=== PATIENT | male | born 1985 | race Two or more races ===

== ENCOUNTER 2025-01-19 20:32 | Emergency (ER) | payer OTHER ==
[~2025-01-19] VITALS: Ht 175.3 cm; Wt 83.9 kg
[2025-01-20 01:28] LABS: URINE APPEARANCE Clear; URINE BILIRRUBIN Negative (NEGATIVE); URINE COLOR Yellow; URINE GLUCOSE Negative (NEGATIVE); URINE KETONE Negative (NEGATIVE); URINE LEUKOCYTE Negative; URINE NITRATE Negative; URINE PROTEIN Negative (NEGATIVE); URINE UROBILINOGEN 0.2 E.U./dl
[2025-01-20 01:35] LABS: URINE RBC 2.9 uL (0.0-20.8)
[2025-01-20 01:54] LABS: BASO % 0.4 % (0.1-1.2); EOS # 0.39 (0.04-0.54); EOS % 3.5 % (0.7-7.0); LYMPH # 3.67 (1.18-3.74); LYMPH % 32.7 % (19.3-53.1); MEAN PLATELET VOLUME 9.30 fl (9.4-12.4); MONO # 0.83 (0.24-0.82); MONO % 7.4 % (4.7-12.5); NEUT # 6.26 (1.56-6.13); NEUT % 55.6 % (34.0-71.1); RED CELL DISTRIBUTION WIDTH 14.9 % (11.6-14.4); URINE BACTERIA 3.5 uL (0.0-1933); URINE BLOOD TRACES; URINE CAST 0.00 uL (0.0-1.40); URINE EPITHELIAL CELLS 0.7 uL (0.0-38.8); URINE WBC 1.0 uL (0.0-23.2)
[2025-01-20 02:20] LABS: BUN CREA RATIO 10.0 (7.0-25.0); CREATININE SERUM 1.13 mg/dL (0.70-1.30); GFR 73.02; GLUCOSE FASTING 95.0 mg/dL (65-100); OSMOLALITY SERUM 280.0 MOSM/KG (275-295)
[2025-01-20 02:39] LABS: COVID-19 AG NEGATIVE (NEGATIVE)
== END 2025-01-20 03:16 | disposition home or self-care (01) ==
LOC: ER 20:33
PROVIDERS: Student in an Organized Health Care Education/Training Program
DX: B34.9 Viral infection, unspecified (principal); F43.9 Reaction to severe stress, unspecified; R53.1 Weakness; Z20.822 Contact with and (suspected) exposure to COVID-19